=== PATIENT | female | born 1970 | race African-American/Black ===

== ENCOUNTER 2016-10-30 09:15 | Outpatient (CLI) | payer OTHER ==
--- NOTE | 2016-10-30 13:01 | Mammography Report ---
BILATERAL DIGITAL SCREENING MAMMOGRAM with CAD: 10/30/16 09:15:00 CLINICAL: Routine screening. COMPARISON:10/28/15 FINDINGS: The breasts are heterogeneously dense, which may obscure small masses. No mass, architectural distortion or suspicious calcifications. IMPRESSION: No mammographic evidence of malignancy. BI-RADS CATEGORY: 1 - - Negative RECOMMENDATION: Routine mammographic screening in one year. COMMENT: Patient follow-up letters are generated by our [employer] application.
== END 2016-10-30 09:16 | disposition home or self-care (01) ==
LOC: SPVWC 09:15
PROVIDERS: ATTEND Nurse Practitioner Women's Health
DX: Z12.31 Encounter for screening mammogram for malignant neoplasm of breast (principal)
CPT/HCPCS: 77067; G0202

== ENCOUNTER 2020-03-13 10:28 | Emergency (ER) | payer OTHER ==
[2020-03-13 10:42] VITALS: BP 123/70
[2020-03-13] MEDS ORDERED: IBUPROFEN 600 MG TAB PO ONE (11:49)
--- NOTE | 2020-03-13 11:53 | Emergency Department Report ---
ED Fall HPI - General Chief Complaint: Fall Stated Complaint: FALL Time Seen by Provider: 03/13/20 11:48 Source: patient Mode of arrival: Wheelchair - History of Present Illness Initial Comments: The patient was evaluated in the emergency department for symptoms described in the history of present illness. He/she was evaluated in the context of the global COVID-19 pandemic, which necessitated consideration that the patient might be at risk for infection with the virus that causes COVID-19. Institutional protocols and algorithms that pertain to the evaluation of patients at risk for COVID-19 are in a state of rapid change based on information released by regulatory bodies including the CDC and federal and state organizations. These policies and algorithms were followed during the patient's care in the emergency department. Please note that these policies, procedures and recommendations changed on a rapid basis. 49-year-old [place] female presents to the emergency room complaining of pain to her right knee and left kingsley status post fall from a 4 foot ladder at work approximately 930 this morning. Patient reports there is pain and difficulty to walk. Patient denies hitting her head denies any loss of consciousness denies any dizziness no nausea no vomiting. No symptoms prior to fall. Past medical history of hypertension. MD Complaint: fall -: This afternoon Time: 09:30 Fall From: other (Letter for steps) Fall Witnessed: yes, by bystander Place Fall Occurred: work Loss of Consciousness: none Prolonged Down Time?: no Symptoms Prior to Fall: none Location - Extremities: Left: Leg, Right: Knee Severity: moderate Quality: sharp, aching Associated Symptoms: denies - Related Data Previous Rx's Medication Instructions Recorded Last Taken Type HYDROcodone/APAP 5-325 [[place] 1 each PO Q6HR PRN #14 tablet 02/04/14 Unknown Rx 5/325] Naproxen [Naprosyn TAB] 500 mg PO BID #30 tablet 02/04/14 Unknown Rx Ibuprofen [Motrin 600 MG tab] 600 mg PO Q8H PRN #30 tablet 03/13/20 Unknown Rx Allergies Allergy/AdvReac Type Severity Reaction Status Date / Time No Known Allergies Allergy Verified 02/04/14 18:12 ED Review of Systems ROS: Stated complaint: FALL Other details as noted in HPI Comment: All other systems reviewed and negative ED Past Medical Hx - Past Medical History Previous Medical History?: Yes Hx Hypertension: Yes - Surgical History Additional Surgical History: - Social History Smoking Status: Never Smoker Substance Use Type: None - Medications Home Medications: Home Medications Medication Instructions Recorded Confirmed Last Taken Type HYDROcodone/APAP 5-325 [[place] 1 each PO Q6HR PRN #14 tablet 02/04/14 Unknown Rx 5/325] Naproxen [Naprosyn TAB] 500 mg PO BID #30 tablet 02/04/14 Unknown Rx Ibuprofen [Motrin 600 MG tab] 600 mg PO Q8H PRN #30 tablet 03/13/20 Unknown Rx ED Physical Exam - General Limitations: No Limitations General appearance: alert, in no apparent distress - Head Head exam: Present: atraumatic, normocephalic - Eye Eye exam: Present: normal appearance - ENT ENT exam: Present: mucous membranes moist - Neck Neck exam: Present: normal inspection, full ROM - Respiratory Respiratory exam: Absent: accessory muscle use - Cardiovascular Cardiovascular Exam: Present: regular rate, normal rhythm. Absent: systolic murmur, diastolic murmur, rubs, gallop - Expanded Lower Extremity Exam Right Upper Leg exam: Present: normal inspection, full ROM Knee exam: Present: full ROM, tenderness, crepidus. Absent: swelling, abrasion, ecchymosis, deformity Lower Leg exam: Present: normal inspection, full ROM. Absent: tenderness, swelling Left Hip exam: Present: normal inspection, full ROM Upper Leg exam: Present: normal inspection, full ROM Knee exam: Present: normal inspection, full ROM Lower Leg exam: Present: tenderness, swelling, abrasion, ecchymosis Ankle exam: Present: normal inspection, full ROM Foot/Toe exam: Present: normal inspection, full ROM Neuro vascular tendon exam: Present: no vascular compromise Gait: Positive: observed and limited by pain - Back Exam Back exam: Present: normal inspection, full ROM - Neurological Exam Neurological exam: Present: alert, oriented X3 - Psychiatric Psychiatric exam: Present: normal affect, normal mood - Skin Skin exam: Present: warm, dry, intact, normal color. Absent: rash ED Course Vital Signs 03/13/20 10:41 Temperature 98.6 F Pulse Rate 80 Respiratory 16 Rate Blood Pressure 123/70 [Right] O2 Sat by Pulse 98 Oximetry ED Medical Decision Making - Radiology Data Radiology results: report reviewed [facility] [address] [place] [address] XRay Report Signed Patient: SUSANNE STARKS MR#: [id number] 69 : 1970 Acct:[id number] Age/Sex: 49 / F ADM Date: 03/13/20 Loc: ED Attending Dr: Ordering Physician: ELSA SCHMIDT Date of Service: 03/13/20 Procedure(s): XR tibia fibula 1V LT Accession Number(s): [id number] cc: ELSA SCHMIDT Fluoro Time In Minutes: RIGHT KNEE, 3 VIEWS INDICATION / CLINICAL INFORMATION: Fall complaining of right knee pain. COMPARISON: None available. FINDINGS: The right knee appears to be intact without visible fracture or malalignment. No suggestion of joint effusion. Very minimal age-appropriate degenerative change present in the medial joint compartment. IMPRESSION: No significant osseous abnormality. RIGHT TIBIA/FIBULA, 6 VIEWS INDICATION / CLINICAL INFORMATION: Fall complaining of right knee pain. COMPARISON: None available. 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 The remainder of the tibia and fibula are intact and without significant osseous abnormality. Mild degenerative changes are seen within the ankle. Small plantar calcaneal spur incidentally noted. IMPRESSION: No acute significant osseous abnormality of the tibia and fibula. Signer Name: Yakelin Bella MD Signed: 03/13/2020 12:31 PM Workstation Name: [id number] Transcribed By: JR Dictated By: Yakelin Bella MD Electronically Authenticated By: Yakelin Bella MD Signed Date/Time: 03/13/20 1231 DD/ 1228 TD/TT: [facility] [address] [place] [address] XRay Report Signed Patient: SUSANNE STARKS MR#: [id number] [birth year] : 1970 Acct:[id number] Age/Sex: 49 / F ADM Date: 03/13/20 Loc: ED Attending Dr: Ordering Physician: ELSA SCHMIDT Date of Service: 03/13/20 Procedure(s): XR knee 3V RT Accession Number(s): [id number] cc: ELSA SCHMIDT Fluoro Time In Minutes: RIGHT KNEE, 3 VIEWS INDICATION / CLINICAL INFORMATION: Fall complaining of right knee pain. COMPARISON: None available. FINDINGS: The right knee appears to be intact without visible fracture or malalignment. No suggestion of joint effusion. Very minimal age-appropriate degenerative change present in the medial joint compartment. IMPRESSION: No significant osseous abnormality. RIGHT TIBIA/FIBULA, 6 VIEWS INDICATION / CLINICAL INFORMATION: Fall complaining of right knee pain. COMPARISON: None available. 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 The remainder of the tibia and fibula are intact and without significant osseous abnormality. Mild degenerative changes are seen within the ankle. Small plantar calcaneal spur incidentally noted. IMPRESSION: No acute significant osseous abnormality of the tibia and fibula. Signer Name: Yakelin Bella MD Signed: 03/13/2020 12:31 PM Workstation Name: [id number] Transcribed By: JR Dictated By: Yakelin Bella MD Electronically Authenticated By: Yakelin Bella MD Signed Date/Time: 03/13/20 1231 DD/ 1228 TD/TT: - Medical Decision Making 49-year-old [place] female presents to the emergency room complaining of pain to her right knee and left kingsley status post fall from a 4 foot ladder at work approximately 930 this morning. Patient reports there is pain and difficulty to walk. Patient denies hitting her head denies any loss of consciousness denies any dizziness no nausea no vomiting. No symptoms prior to fall. Past medical history of hypertension. X-ray of right knee and left tib-fib. Ibuprofen 600 mg ordered for pain management. Critical care attestation.: If time is entered above; I have spent that time in minutes in the direct care of this critically ill patient, excluding procedure time. ED Disposition Clinical Impression: Fall, Knee pain, right, Knee injury Disposition: - TO HOME OR SELFCARE Is pt being admited?: No Does the pt Need Aspirin: No Condition: Stable Instructions: Arthralgia (ED) Additional Instructions: X-ray shows no acute fractures or dislocations. I am placing you in a knee immobilizer I would like for you to follow-up with an orthopedic provider for further evaluation. Prescriptions: Ibuprofen [Motrin 600 MG tab] 600 mg PO Q8H PRN #30 tablet PRN Reason: Pain Referrals: JEROD SOLIS MD [Staff Physician] - 3-5 Days [facility] [Provider Group] - 3-5 Days Forms: Work/School Release Form(ED)
--- NOTE | 2020-03-13 12:35 | XRay Report ---
RIGHT KNEE, 3 VIEWS INDICATION / CLINICAL INFORMATION: Fall complaining of right knee pain. COMPARISON: None available. FINDINGS: The right knee appears to be intact without visible fracture or malalignment. No suggestion of joint effusion. Very minimal age-appropriate degenerative change present in the medial joint compartment. IMPRESSION: No significant osseous abnormality. RIGHT TIBIA/FIBULA, 6 VIEWS INDICATION / CLINICAL INFORMATION: Fall complaining of right knee pain. COMPARISON: None available. FINDINGS: Sclerotic oval benign lesion is present in the proximal tibia most consistent with a benign bone stephanie nd or ossified fibroma. The remainder of the tibia and fibula are intact and without significant osse ous abnormality. Mild degenerative changes are seen within the ankle. Small plantar calcaneal spur incidentally noted. IMPRESSION: No acute significant osseous abnormality of the tibia and fibula. Signer Name: Yakelin Bella MD Signed: 03/13/2020 12:31 PM Workstation Name: [id number]
== END 2020-03-13 14:09 | disposition home or self-care (01) ==
LOC: ED 10:28
DX: S89.91XA Unspecified injury of right lower leg, initial encounter (principal); I10 Essential (primary) hypertension; Z98.890 Other specified postprocedural states; Z79.899 Other long term (current) drug therapy; W11.XXXA Fall on and from ladder, initial encounter; Y93.89 Activity, other specified; Y92.89 Other specified places as the place of occurrence of the external cause; Y99.0 Civilian activity done for income or pay

== ENCOUNTER 2021-06-24 11:56 | Emergency (ER) | payer OTHER ==
[2021-06-24 12:14] VITALS: BP 172/84
--- NOTE | 2021-06-24 13:10 | Event Note ---
ED Screening Note ED Screening Note: patient complain of shortness of breath with chest tightness this am . This initial assessment/diagnostic orders/clinical plan/treatment(s) is/are subject to change based on patients health status, clinical progression and re- assessment by fellow clinical providers in the ED. Further treatment and workup at subsequent clinical providers discretion. Patient/guardian urged not to elope from the ED as their condition may be serious if not clinically assessed and managed. Initial orders include: EKG,Lab ,Chest x ray
--- NOTE | 2021-06-24 13:54 | XRay Report ---
CHEST 2 VIEWS INDICATION / CLINICAL INFORMATION: Dyspnea. COMPARISON: None available. FINDINGS: SUPPORT DEVICES: None. HEART / MEDIASTINUM: No significant abnormality. LUNGS / PLEURA: No significant pulmonary or pleural abnormality. No pneumothorax. ADDITIONAL FINDINGS: No significant additional findings. IMPRESSION: 1. No acute findings. Signer Name: Kacey Acuña MD Signed: 06/24/2021 1:50 PM Workstation Name: [id number]
--- NOTE | 2021-06-24 14:24 | Emergency Department Report ---
HPI - General Chief Complaint: Dyspnea/Respdistress Time Seen by Provider: 06/24/21 14:04 - HPI HPI: MSE 6 The patient is a 50-year-old female present with chief complaint of shortness of breath. The patient states she had 2 episodes of shortness of breath this morning. Patient states she has had these episodes in the past and they have been increasing in frequency since March 2021. Patient states she was evaluated by her trimmer climber Dr. 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 The patient states the nitroglycerin usually helps the episodes in the past but today she had a second episode 30 minutes after the first. Patient denies ever having chest pain pressure or tightness. Patient denies nausea/vomiting, cough or fever. When asked how she is feeling currently the patient states she just feels tired. After the interview I explained to the patient that I would like to perform home blood work, x-ray and discussed the presentation with her trimmer climber. Patient states she does not wish to stay for further evaluation and just wants to go home. Patient and verbalized understanding of increased morbidity and/or mortality should she leave the hospital AGAINST MEDICAL ADVICE. ED Past Medical Hx - Past Medical History Hx Hypertension: Yes Additional medical history: Hypercholesterolemia - Surgical History Additional Surgical History: - Family History Family history: no significant - Social History Smoking Status: Never Smoker Substance Use Type: None - Medications Home Medications: Home Medications Medication Instructions Recorded Confirmed Last Taken Type HYDROcodone/APAP 5-325 [[place] 1 each PO Q6HR PRN #14 tablet 02/04/14 Unknown Rx 5/325] Naproxen [Naprosyn TAB] 500 mg PO BID #30 tablet 02/04/14 Unknown Rx Ibuprofen [Motrin 600 MG tab] 600 mg PO Q8H PRN #30 tablet 03/13/20 Unknown Rx ED Review of Systems ROS: Stated complaint: WEAKNESS Other details as noted in HPI Constitutional: denies: diaphoresis Eyes: denies: eye pain ENT: denies: throat pain Respiratory: shortness of breath Cardiovascular: denies: chest pain, palpitations (?) Endocrine: no symptoms reported Gastrointestinal: denies: nausea, vomiting Genitourinary: denies: dysuria Musculoskeletal: denies: back pain Neurological: denies: headache Physical Exam - Physical Exam Vital Signs: Vital Signs 06/24/21 12:13 Temperature 98.7 F Pulse Rate 75 Respiratory 16 Rate Blood Pressure 172/84 [Right] O2 Sat by Pulse 99 Oximetry Physical Exam: GENERAL: The patient is well-developed well-nourished female sitting in wheelchair not appearing to be in acute distress. [] HEENT: Normocephalic. Atraumatic. Extraocular motions are intact. Patient has moist mucous membranes. NECK: Supple. Trachea midline CHEST/LUNGS: Clear to auscultation. There is no respiratory distress noted. HEART/CARDIOVASCULAR: Regular. There is no tachycardia. There is no gallop rub or murmur. ABDOMEN: Abdomen is soft, nontender. Patient has normal bowel sounds. There is no abdominal distention. SKIN: There is no rash. There is no edema. There is no diaphoresis. NEURO: The patient is awake, alert, and oriented. The patient is cooperative. The patient has no focal neurologic deficits. The patient has normal speech. GCS 15 MUSCULOSKELETAL: There is no evidence of acute injury. ED Course Vital Signs 06/24/21 12:13 Temperature 98.7 F Pulse Rate 75 Respiratory 16 Rate Blood Pressure 172/84 [Right] O2 Sat by Pulse 99 Oximetry ED Medical Decision Making - Radiology Data Radiology results: report reviewed (Chest x-ray), image reviewed (Chest x-ray) interpreted by me: Chest x-ray-no definite focal infiltrates, no pneumothorax [facility] [address] [place] [address] XRay Report Signed Patient: SUSANNE STARKS MR#: [id number] 69 : 1970 Acct:[id number] Age/Sex: 50 / F ADM Date: 06/24/21 Loc: ED Attending Dr: Ordering Physician: CITLALI DIAZ Date of Service: 06/24/21 Procedure(s): XR chest routine 2V Accession Number(s): [id number] cc: CITLALI DIAZ Fluoro Time In Minutes: CHEST 2 VIEWS INDICATION / CLINICAL INFORMATION: Dyspnea. COMPARISON: None available. FINDINGS: SUPPORT DEVICES: None. HEART / MEDIASTINUM: No significant abnormality. LUNGS / PLEURA: No significant pulmonary or pleural abnormality. No pneumothorax. ADDITIONAL FINDINGS: No significant additional findings. IMPRESSION: 1. No acute findings. Signer Name: Kacey Acuña MD Signed: 06/24/2021 1:50 PM Workstation Name: [id number] Transcribed By: [facility] Dictated By: Kacey Acuña MD Electronically Authenticated By: Kacey Acuña MD Signed Date/Time: 06/24/21 1350 DD/ 1349 TD/TT: Print Cancel - Differential Diagnosis ACS, Prinzmetal's, PE, pneumonia, anxiety, dysrhythmia Critical care attestation.: If time is entered above; I have spent that time in minutes in the direct care of this critically ill patient, excluding procedure time. ED Disposition Clinical Impression: Shortness of breath Disposition: 07 LEFT AGAINST MEDICAL ADVICE Is pt being admited?: No Does the pt Need Aspirin: No Condition: Undetermined Referrals: PRIMARY CARE, [Primary Care Provider] - 3-5 Days Time of Disposition: 14:23 (Patient leaving AMA)
== END 2021-06-24 14:31 | disposition left against medical advice (07) ==
LOC: ED 11:56
DX: R06.02 Shortness of breath (principal); I10 Essential (primary) hypertension; E78.00 Pure hypercholesterolemia, unspecified; Z98.890 Other specified postprocedural states; Z79.899 Other long term (current) drug therapy
CPT/HCPCS: 71046; 99283